=== PATIENT | male | born 2000 | race Caucasian/White ===

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

== ENCOUNTER 2023-07-25 08:57 | Emergency (ER) | payer BC ==
[~2023-07-25] VITALS: Ht 188 cm; Wt 68.3 kg
[~2023-07-25 08:57] MED LIST changes: +AUGMENTIN 875-1 EACH PO; +CEPHALEXIN500 MG PO
--- OUTSIDE RECORDS SUMMARY | 2023-07-25 09:03 | XMS ---
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 Margot has no Care Guidelines for this patient. Brandon VISIT COUNT (12 MO.) [address] [facility] TOTAL 2 NOTE: Visits indicate total known visits. ED/C VISIT TRACKING (12 MO.) 07/25/2023 08:58 [facility] [place] TYPE: Emergency COMPLAINT: - CONSTIPATED 07/24/2023 16:12 [facility] [place] TYPE: Emergency COMPLAINT: - CONSTIPATION INPATIENT VISIT TRACKING (12 MO.) No inpatient visits to display in this time frame [email or web address]
[2023-07-25 09:35] VITALS: BP 114/71
== END 2023-07-25 09:35 | disposition home or self-care (01) ==
LOC: ED 08:57
DX: K59.00 Constipation, unspecified (principal); Z79.899 Other long term (current) drug therapy
CPT/HCPCS: 99283